=== PATIENT | male | born 1935 | race Caucasian/White ===

== ENCOUNTER 2021-03-28 17:37 | Emergency (ER) | payer MEDICARE ==
[2021-03-28 18:21] LABS: BASOPHIL 0.7 % (0-2); EOSINOPHIL 2.3 % (0-7); HGB 12.9 g/dl (13.2-18.0); LYMPHOCYTE 23.4 % (15-48); MCH 29.6 pg (25.0-31.0); MCHC 33.1 g/dL (32.0-36.0); MCV 89.4 fL (78.0-100.0); MONOCYTE 8.2 % (0-12); NEUTROPHIL 64.7 % (41-80); NRBC 0; PLT 237 K/uL (150-400); RBC 4.36 M/uL (4.70-6.00); RDW 13.6 % (11.5-14.0); WBC 8.8 K/uL (4.0-10.5)
[2021-03-28 18:32] LABS: INR 3.62 (0.9-1.2)
[2021-03-28 18:39] LABS: BUN/CREAT RATIO (CALC) 20.5 RATIO; CREATININE 0.73 mg/dL (0.67-1.17)
[2021-03-28 18:43] LABS: POTASSIUM 3.7 mmol/L (3.5-5.1)
== END 2021-03-28 20:10 | disposition home or self-care (01) ==
LOC: FER 17:37
PROVIDERS: Emergency Medicine
DX: K06.8 Other specified disorders of gingiva and edentulous alveolar ridge (principal); F17.200 Nicotine dependence, unspecified, uncomplicated
CPT/HCPCS: 36415; 80048; 85025; 85610; 99283

== ENCOUNTER 2021-09-09 10:23 | Emergency (ER) | payer MEDICARE ==
[2021-09-09 11:49] LABS: BASOPHIL 0.6 % (0-2); HGB 12.5 g/dl (13.2-18.0); LYMPHOCYTE 18.2 % (15-48); MCH 29.1 pg (25.0-31.0); MCHC 32.9 g/dL (32.0-36.0); MCV 88.4 fL (78.0-100.0); MONOCYTE 7.3 % (0-12); MPV 10.3 fL (6.0-9.5); NEUTROPHIL 71.4 % (41-80); NRBC 0; PLT 208 K/uL (150-400); RDW 14.2 % (11.5-14.0); WBC 9.4 K/uL (4.0-10.5)
[2021-09-09 12:15] LABS: PROTHROMBIN TIME 45.4 SECONDS (11.8-13.4)
[2021-09-09 12:20] LABS: INR 5.03 (0.9-1.2)
[2021-09-09 12:29] LABS: PTT 71.1 SECONDS (24.4-34.7)
== END 2021-09-09 13:14 | disposition home or self-care (01) ==
LOC: FER 10:23
PROVIDERS: Emergency Medicine
DX: K06.8 Other specified disorders of gingiva and edentulous alveolar ridge (principal); R79.1 Abnormal coagulation profile; E11.9 Type 2 diabetes mellitus without complications; I48.91 Unspecified atrial fibrillation; Z79.01 Long term (current) use of anticoagulants
CPT/HCPCS: 36415; 85025; 85610; 85730; 99283

== ENCOUNTER 2022-05-31 11:28 | Emergency (ER) | payer MEDICARE ==
[~2022-05-31] VITALS: Ht 182.9 cm; Wt 73.0 kg
[2022-05-31 12:41] LABS: BILIRUBIN NEGATIVE (NEGATIVE); BLOOD 3+ Ery/uL (NEGATIVE); CLARITY HAZY (CLEAR); COLOR YELLOW (YELLOW); GLUCOSE (U) 2+ mg/dL (NORMAL); LEUKOCYTES TRACE Leu/uL (NEGATIVE); NITRITE NEGATIVE (NEGATIVE); PROTEIN 2+ mg/dL (NEGATIVE); UROBILINOGEN 0.2 mg/dL (0.2-1.0); pH 6.5 (5.0-9.0)
[2022-05-31 12:48] LABS: BACTERIA TRACE; URINARY RBC TNTC
== END 2022-05-31 13:50 | disposition home or self-care (01) ==
LOC: FER 11:28
PROVIDERS: Nurse Practitioner Family
DX: R31.9 Hematuria, unspecified (principal); T83.098A Other mechanical complication of other urinary catheter, initial encounter; I48.91 Unspecified atrial fibrillation; Z79.01 Long term (current) use of anticoagulants
CPT/HCPCS: 81001; 99283